=== PATIENT | female | born 1990 | race Two or more races ===

== ENCOUNTER 2021-12-31 19:09 | Emergency (ER) | payer BC, OTHER ==
[~2021-12-31] VITALS: Ht 154.9 cm; Wt 52.6 kg
--- NOTE | 2021-12-31 19:45 | NUR ---
PT BIBS FOR C/O N/V AND EPIGASTRIC PAIN SINCE 0200. PT IS A/O X 4, RR EVEN AND UNLABORED, NO SOB NOTED. PATIENT CONNECTED TO MONITORS.
[2021-12-31] MEDS ORDERED: LIDOCAINE VISCOUS 2% UD 15 ML UDC ONE (19:49)
[2021-12-31] MEDS ORDERED: MAG HYDROX/AL HYDROX/SIMETH 30 ML UDC ONE (19:49)
[2021-12-31] MEDS ORDERED: ONDANSETRON HCL/PF 4 MG/2 ML VIAL ONE (19:52)
[2021-12-31] MEDS ORDERED: LIDOCAINE VISCOUS 2% UD 15 ML UDC MM ONE (20:00)
[2021-12-31] MEDS ORDERED: ONDANSETRON HCL/PF 4 MG/2 ML VIAL IVP ONE (20:00)
[2021-12-31] MEDS ORDERED: IV NS 0.9% 1,000 ML BAG IV ONE (20:00)
[2021-12-31] MEDS ORDERED: MAG HYDROX/AL HYDROX/SIMETH 30 ML UDC PO ONE (20:00)
[2021-12-31 20:28] LABS: BASOPHILS % (AUTO) 0.2 % (0.0-2.0); EOSINOPHILS % (AUTO) 0.9 % (0.0-6.0); HEMATOCRIT 45 % (33-45); LYMPHOCYTES # (AUTO) 3.1 K/uL (0.8-4.8); LYMPHOCYTES % (AUTO) 20.9 % (20.0-44.0); MEAN CORPUSCULAR HGB CONC 34 g/dl (31.0-36.0); MEAN CORPUSCULAR VOLUME 90 fL (82-100); MONOCYTES # (AUTO) 1.3 K/uL (0.1-1.30); MONOCYTES % (AUTO) 8.8 % (2.0-12.0); NEUTROPHILS # (AUTO) 10.2 K/uL (1.8-8.9); NEUTROPHILS % (AUTO) 69.2 % (43.0-81.0); PLATELET COUNT (AUTO) 355 K/uL (150-450); RED BLOOD CELL COUNT(AUTO) 4.94 MIL/uL (4.0-5.2); WHITE BLOOD COUNT (AUTO) 14.8 K/uL (4.3-11.0)
[2021-12-31 20:36] LABS: BILIRUBIN,URINE NEGATIVE (NEGATIVE); COLOR,URINE YELLOW (YELLOW); LEUKOCYTE ESTERASE ,URINE NEGATIVE (NEGATIVE); NITRITE, URINE NEGATIVE (NEGATIVE); PROTEIN,URINE NEGATIVE (NEGATIVE); UGLUCOSE NEGATIVE (NEGATIVE); UROBILINOGEN,URINE 0.2 EU/dL (0.2)
[2021-12-31 20:48] LABS: CALCIUM, SERUM 9.1 mg/dL (8.5-10.1); CREATININE 0.7 mg/dL (0.6-1.3); POTASSIUM 3.2 mmol/L (3.5-5.1)
[2021-12-31 21:01] LABS: ALBUMIN 4.1 g/dL (3.4-5.0); BILIRUBIN,DIRECT 0.2 mg/dL (0.0-0.2); BILIRUBIN,TOTAL 1.3 mg/dL (0.2-1.0); TOTAL PROTEIN, SERUM 8.8 g/dL (6.4-8.2)
[2021-12-31] MEDS ORDERED: ONDA4TAB5 PO (21:30)
[2021-12-31] MEDS ORDERED: IBUP-1955 PO (21:30)
[2021-12-31] MEDS ORDERED: HYDR-4303 PO (21:30)
[2021-12-31 21:42] VITALS: BP 119/70
--- NOTE | 2021-12-31 21:42 | NUR ---
IV removed. Catheter intact and site benign. Pressure and 4x4 applied to site. No bleeding noted.
--- NOTE | 2021-12-31 21:42 | NUR ---
Patient discharged to home in stable condition. Written and verbal after care instructions given. Patient verbalizes understanding of instruction.
== END 2021-12-31 21:43 | disposition home or self-care (01) ==
LOC: ER 19:21
DX: K80.80 Other cholelithiasis without obstruction (principal); Z88.0 Allergy status to penicillin; Z79.899 Other long term (current) drug therapy
CPT/HCPCS: 36415; 76700; 80048; 80076; 81003; 83690; 84703; 85025; 96361; 96374; 99284; J2405; J7030

== ENCOUNTER 2025-06-21 06:03 | Inpatient (IN) | payer BC, OTHER ==
[~2025-06-21] VITALS: Ht 157.5 cm; Wt 63.3 kg
[~2025-06-21 06:03] MED LIST: HYDR-4303 PO; IBUP-1955 PO; ONDA4TAB5 PO
[2025-06-21 06:50] LABS: PREGNANCY TEST URINE QUAL NEGATIVE (NEGATIVE)
[2025-06-21] MEDS: IV NS 0.9% 1,000 ML BAG IV ONE (06:56)
[2025-06-21] MEDS ORDERED: KETOROLAC TROMETHAMINE INJ 30 MG/ML VIAL ONE (06:57)
[2025-06-21] MEDS ORDERED: ONDANSETRON HCL/PF 4 MG/2 ML VIAL ONE (06:57)
[2025-06-21] MEDS: KETOROLAC TROMETHAMINE INJ 30 MG/ML VIAL IV ONE (07:00)
[2025-06-21] MEDS: ONDANSETRON HCL/PF 4 MG/2 ML VIAL IVP ONE (07:00)
[2025-06-21 07:03] LABS: PLATELET COUNT (AUTO) 377 K/uL (150-450); RED BLOOD CELL COUNT(AUTO) 4.86 MIL/uL (4.0-5.2); RED CELL DISTRIBUTION WIDTH 12.8 % (11.5-15.0); WHITE BLOOD COUNT (AUTO) 15.3 K/uL (4.3-11.0)
[2025-06-21 07:15] LABS: APPEARANCE,URINE SLIGHTLY CLOUDY (CLEAR)
[2025-06-21 07:16] LABS: BLOOD, URINE TRACE Ery/uL (NEGATIVE); LEUKOCYTE ESTERASE ,URINE NEG (NEGATIVE); NITRITE, URINE NEGATIVE (NEGATIVE); UGLUCOSE NEGATIVE (NEGATIVE)
[2025-06-21 07:26] LABS: ASPARTATE AMINOTRANSFERASE 24.0 U/L (15-37); CALCIUM, SERUM 8.6 mg/dL (8.5-10.1); CREATININE 0.7 mg/dL (0.6-1.3); SODIUM SERUM 138.0 mmol/L (136-145); TOTAL PROTEIN, SERUM 8.6 g/dL (6.4-8.2); UREA NITROGEN, BLOOD 5.0 mg/dL (7-18)
[2025-06-21 07:39] LABS: ADD URINE CULTURE YES
[2025-06-21] MEDS: LEVOFLOXACIN 750 MG /D5W 150ML 750 MG in PREMIX 1 EA IV SCH (08:00)
[2025-06-21 11:20] VITALS: BP 107/73; TEMP 98.1
[2025-06-21] MEDS ORDERED: PIPERACILLIN /TAZOBACTAM 4.5 G in IV D5W 100 ML IV SCH (12:00)
[2025-06-21] MEDS: IV NS 0.9% 1,000 ML IV PRN (12:58)
[2025-06-21] MEDS: ZOSYN IVPB 3.375 G in IV D5W 50ml IV SCH (13:56)
[2025-06-21] MEDS: ONDANSETRON HCL/PF 4 MG/2 ML VIAL IVP PRN (14:02)
[2025-06-21] MEDS: POTASSIUM CL. PREMIX PERIPHER. 50 ML IV SCH (15:05)
[2025-06-21 16:00] VITALS: BP 101/58; TEMP 97.6; O2SAT 98
[2025-06-21 16:31] VITALS: BP 101/58; TEMP 97.6; O2SAT 98
[2025-06-21 20:00] VITALS: BP 111/68; TEMP 99.1; O2SAT 99
[2025-06-22 06:30] LABS: PLATELET COUNT (AUTO) 321 K/uL (150-450); RED BLOOD CELL COUNT(AUTO) 4.49 MIL/uL (4.0-5.2); RED CELL DISTRIBUTION WIDTH 12.7 % (11.5-15.0); WHITE BLOOD COUNT (AUTO) 12.7 K/uL (4.3-11.0)
[2025-06-22 06:46] LABS: LDL 89.0 mg/dL (0-99)
[2025-06-22 06:52] LABS: ASPARTATE AMINOTRANSFERASE 21.0 U/L (15-37); CALCIUM, SERUM 8.3 mg/dL (8.5-10.1); CREATININE 0.5 mg/dL (0.6-1.3); PHOSPHORUS 2.6 mg/dL (2.5-4.9); SODIUM SERUM 137.0 mmol/L (136-145); TOTAL PROTEIN, SERUM 7.8 g/dL (6.4-8.2); UREA NITROGEN, BLOOD 5.0 mg/dL (7-18)
[2025-06-22 08:00] VITALS: BP 106/60; TEMP 98.6; O2SAT 97
[2025-06-22] MEDS: PANTOPRAZOLE 40 MG VIAL IV SCH (09:01)
[2025-06-22 16:00] VITALS: BP 121/78; TEMP 98.4; O2SAT 97
[2025-06-22 20:00] VITALS: BP 117/76; TEMP 98.4; O2SAT 98
[2025-06-23] MEDS: MORPHINE SULFATE INJ 2 MG/ML DISP.SYRIN IV PRN (03:46)
[2025-06-23 07:32] LABS: PLATELET COUNT (AUTO) 295 K/uL (150-450); RED BLOOD CELL COUNT(AUTO) 4.40 MIL/uL (4.0-5.2); RED CELL DISTRIBUTION WIDTH 12.7 % (11.5-15.0); WHITE BLOOD COUNT (AUTO) 12.3 K/uL (4.3-11.0)
[2025-06-23 07:35] LABS: ASPARTATE AMINOTRANSFERASE 25.0 U/L (15-37); CALCIUM, SERUM 8.0 mg/dL (8.5-10.1); CREATININE 0.6 mg/dL (0.6-1.3); PHOSPHORUS 2.7 mg/dL (2.5-4.9); SODIUM SERUM 137.0 mmol/L (136-145); TOTAL PROTEIN, SERUM 7.1 g/dL (6.4-8.2); UREA NITROGEN, BLOOD 6.0 mg/dL (7-18)
[2025-06-23 08:00] VITALS: BP 106/60; TEMP 97.9; O2SAT 98
[2025-06-23] MEDS: POTASSIUM CL. PREMIX PERIPHER. 50 ML IV SCH (10:48)
[2025-06-23 13:58] LABS: INR 1.07 (0.91-1.10)
[2025-06-23 16:00] VITALS: BP 103/77; TEMP 98.5; O2SAT 97
[2025-06-23] MEDS ORDERED: BUPIVACAINE 0.5 % PF 150 MG/30 ML VIAL ONE (16:37)
[2025-06-23] MEDS ORDERED: INDOCYANINE GREEN 25 MG/VIAL VIAL IJ ONE (16:37)
[2025-06-23] MEDS ORDERED: IOHEXOL 0 ML IV ONE (16:37)
[2025-06-23] MEDS ORDERED: LIDOCAINE 1%-EPI 1:100,000 20 ML VIAL ONE (16:37)
[2025-06-23] MEDS ORDERED: FENTANYL PF 100MCG/2ML AMPUL ONE (17:17)
[2025-06-23] MEDS ORDERED: SUGAMMADEX SODIUM 200 MG/2 ML VIAL IV ONE (17:17)
[2025-06-23] MEDS ORDERED: ROCURONIUM BROMIDE 50 MG/5 ML ONE (17:18)
[2025-06-23] MEDS ORDERED: MIDAZOLAM HCL 2 MG/2ML VIAL ONE (17:18)
[2025-06-23 20:00] VITALS: BP 134/69; TEMP 98.1; O2SAT 98
[2025-06-24 07:00] VITALS: BP 110/69; TEMP 98.2; O2SAT 97
[2025-06-24 07:43] LABS: PLATELET COUNT (AUTO) 317 K/uL (150-450); RED BLOOD CELL COUNT(AUTO) 4.38 MIL/uL (4.0-5.2); RED CELL DISTRIBUTION WIDTH 12.6 % (11.5-15.0); WHITE BLOOD COUNT (AUTO) 11.2 K/uL (4.3-11.0)
[2025-06-24 08:11] LABS: ASPARTATE AMINOTRANSFERASE 68.0 U/L (15-37); CALCIUM, SERUM 7.7 mg/dL (8.5-10.1); CREATININE 0.6 mg/dL (0.6-1.3); PHOSPHORUS 2.8 mg/dL (2.5-4.9); SODIUM SERUM 139.0 mmol/L (136-145); TOTAL PROTEIN, SERUM 7.2 g/dL (6.4-8.2); UREA NITROGEN, BLOOD 7.0 mg/dL (7-18)
[2025-06-25] MEDS ORDERED: PANTOPRAZOLE 40 MG/PACK PACK PO SCH (09:00)
== END 2025-06-24 14:50 | disposition home or self-care (01) | DRG 419 ==
LOC: ER 06:12 → MED 10:24
PROC: 0FB04ZX Excision of Liver, Percutaneous Endoscopic Approach, Diagnostic (ICD-10-PCS; 2025-06-23)
PROC: 07BD4ZX Excision of Aortic Lymphatic, Percutaneous Endoscopic Approach, Diagnostic (ICD-10-PCS; 2025-06-23)
PROC: BF5C2Z0 Other Imaging of Hepatobiliary System, All using Fluorescing Agent, Intraoperative (ICD-10-PCS; 2025-06-23)
PROC: 0FT44ZZ Resection of Gallbladder, Percutaneous Endoscopic Approach (ICD-10-PCS; principal; 2025-06-23 18:00)
DX: K80.01 Calculus of gallbladder with acute cholecystitis with obstruction (principal); K82.A1 Gangrene of gallbladder in cholecystitis; R11.2 Nausea with vomiting, unspecified; Z88.0 Allergy status to penicillin; D72.829 Elevated white blood cell count, unspecified; R74.8 Abnormal levels of other serum enzymes
CPT/HCPCS: 36415; 76705-TC; 78226; 80048-TC; 80053-TC; 80061-TC; 80076-TC; 81001; 82962-TC; 83690-TC; 83735-TC; 84100-TC; 84443-TC; 84703-TC; 85025-TC; 85610-TC; 85730-TC; 86850-TC; 87086-TC; A4216; A4223; A6209; A9537; G0378; J0690; J1100; J1885; J1956; J2250; J2270; J2405; J2470; J2543; J2704; J3010; J3480; J3490; J7030; J7050; J7060; Q9967; Q9968